=== PATIENT | female | born 1965 | race Hispanic/Latino ===

== ENCOUNTER 2017-11-19 18:10 | Emergency (ER) | payer BC, OTHER ==
[2017-11-19 19:44] LABS: Absolute Lymphocytes (CBC) 3.2 K/uL (0.7-4.9); Absolute Monocytes 0.6 K/uL (0.1-1.3); Absolute Neutrophil 5.2 K/uL (1.8-8.0); Eosinophils % 2.4 % (0-4.4); Hematocrit 39.7 % (36.0-45.0); Lymphocytes % 34.1 % (15.3-44.8); MCH 30.7 pg (27.0-35.0); MCV 89.6 fL (80-100); MPV 10.8 fL (7.6-11.3); Monocytes % 6.8 % (3.3-12.3); RBC Red Blood Cell Count 4.43 M/uL (3.86-4.86)
[2017-11-19 19:51] LABS: Bicarbonate 26 mEq/L (21-31); Glucose Level 326 mg/dL (65-120); Lipase 20 U/L (22-51); Potassium 3.4 mEq/L (3.6-5.0); Sodium Level 133 mEq/L (135-145)
[2017-11-19 19:57] LABS: ALT/SGPT 66 IU/L (10-60); AST/SGOT 50 IU/L (10-42); Albumin 3.7 g/dL (3.2-5.5); Alkaline Phosphatase 157 IU/L (42-121); Amylase Level 16 U/L (28-100); BUN Blood Urea Nitrogen 9 mg/dL (6-20); Bilirubin Direct 0.1 mg/dL (0-0.2); Bilirubin Total 0.3 mg/dL (0.3-1.2); Protein, Total 7.4 g/dL (6.0-8.3)
[2017-11-19] MEDS ORDERED: NA CHLORIDE 0.9% 1,000 ML ONE (20:15)
[2017-11-19] MEDS ORDERED: INSULIN -REGULAR HUMAN 50 UNIT/0.5 ML ML ONE (20:48)
--- NOTE | 2017-11-19 21:00 | ER ---
Nurse's Notes [facility] Name: Monroe Boss Age: 52 yrs Sex: Female : 1965 Arrival Date: 11/19/2017 Time: 18:13 Bed 17 Private MD: Diagnosis: Elevated blood glucose level Presentation: 11/19 18:29 Presenting complaint: Patient states: My BGL has been high at home (440) and I am out la1 of my insulin and HTN meds because I missed my doctors appointment. Transition of care: patient was not received from another setting of care. Onset of symptoms was November 19, 2017. Care prior to arrival: None. 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 - Social history:: Smoking status: Patient uses tobacco products, smokes one-half pack cigarettes per day. - Family history:: not pertinent. Screenin:06 Abuse screen: Denies threats or abuse. Nutritional screening: No deficits noted. tl2 Tuberculosis screening: No symptoms or risk factors identified. Fall Risk None identified. Assessment: 20:06 General: Appears in no apparent distress. uncomfortable, Behavior is calm, cooperative, tl2 appropriate for age. General: pt reports not having her insulin or HTN meds for the last week. reports BGL in 400's. Pain: Denies pain. Neuro: Level of Consciousness is awake, alert, obeys commands. Cardiovascular: Denies chest pain. Respiratory: Airway is patent Respiratory effort is even, unlabored, Respiratory pattern is regular, symmetrical. GI: No signs and/or symptoms were reported involving the gastrointestinal system. : No signs and/or symptoms were reported regarding the genitourinary system. Derm: Skin is pink, warm \T\ dry. 21:37 Reassessment: Patient and/or family updated on plan of care and expected duration. Pain tl1 level reassessed. Patient is alert, oriented x 3, equal unlabored respirations, skin warm/dry/pink. Patient states feeling better. Patient states symptoms have improved. Vital Signs: 18:30 BP 160 / 100; Pulse 84; Resp 16; Temp 97.5; Pulse Ox 100% on R/A; Weight 90.72 kg; la1 Height 4 ft. 11 in. (149.86 cm); 19:27 BP 144 / 97; Pulse 97; Resp 17; Pulse Ox 97% on R/A; Pain 0/10; tl1 20:06 BP 135 / 99; Pulse 90; Resp 18; Pulse Ox 97% on R/A; tl2 20:55 BP 148 / 98; Pulse 96; Resp 17; Pulse Ox 98% ; Pain 0/10; tl1 21:27 BP 132 / 69; Pulse 98; Resp 16; Pulse Ox 98% on R/A; tl2 21:32 Temp 97.6; tl1 21:32 Pain 0/10; tl1 18:30 Body Mass Index 40.39 (90.72 kg, 149.86 cm) la1 Vitals: 20:06 Cardiac Rhythm Assessment Sinus rhythm. tl2 ED Course: 18:13 Patient arrived in ED. mr 18:29 Triage completed. la1 18:30 Arm band placed on left wrist. la1 19:21 Kalyani Lopez MD is Attending Physician. ma2 19:26 Irasema Jansen RN is Primary Nurse. tl1 20:06 Patient has correct armband on for positive identification. Placed in gown. Bed in low tl2 position. Call light in reach. Side rails up X2. 20:06 Inserted saline lock: 20 gauge in left antecubital area, using aseptic technique. Blood tl2 collected. placed by LALO Villalpando. 21:37 No provider procedures requiring assistance completed. IV discontinued, intact, tl1 bleeding controlled, No redness/swelling at site. Pressure dressing applied. Administered Medications: 20:19 Drug: NS 0.9% 1000 ml Route: IV; Rate: 1000 ml; Site: left antecubital; tl1 21:28 Follow up: IV Status: Completed infusion; IV Intake: 1000ml tl2 21:38 Follow up: IV Status: Completed infusion tl1 20:51 Drug: Insulin Regular Human 5 units {Co-Signature: tl2 (Marilyn Virk RN).} Route: IVP; tl1 Site: left antecubital; 21:28 Follow up: Response: No adverse reaction; Blood sugar is lowered tl2 21:38 Follow up: Response: No adverse reaction; Blood sugar is lowered tl1 Point of Care Testing: Blood Glucose: 18:30 Blood Glucose: 346 mg/dL; la1 21:26 Blood Glucose: 143 mg/dL; tl2 Ranges: Intake: 21:28 IV: 1000ml; Total: 1000ml. tl2 Outcome: 20:59 Discharge ordered by . ma2 21:38 Discharged to home ambulatory, with family. tl1 21:38 Condition: good 21:38 Discharge instructions given to patient, family, Instructed on discharge instructions, follow up and referral plans. medication usage, Demonstrated understanding of instructions, follow-up care, medications, Prescriptions given X 4. 21:39 Patient left the ED. tl1 Signatures: Brandi Pearson Lee, RN RN la1 Irasema Jansen RN RN tl1 Marilyn Virk RN RN tl2 Kalyani Lopez MD MD ma2 Marilyn Virk RN tl2 Corrections: (The following items were deleted from the chart) 20:07 20:06 Reassessment: tl2 tl2
--- NOTE | 2017-11-19 21:00 | EDPHYS ---
Physician Documentation [facility] Name: Monroe Boss Age: 52 yrs Sex: Female : 1965 Arrival Date: 11/19/2017 Time: 18:13 Bed 17 Private MD: ED Physician Kalyani Lopez HPI: 11/19 20:26 This 52 yrs old Female presents to ER via Ambulatory with complaints of High ma2 Blood Sugar. 20:26 Onset: The symptoms/episode began/occurred gradually, 1 day(s) ago. Associated signs ma2 and symptoms: Pertinent positives: None. Current symptoms: In the emergency department the patient's symptoms are unchanged from the initial presentation. The patient has experienced similar episodes in the past. hx of IDDM out of her medication here with elevated BS no symptom . 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 - Social history:: Smoking status: Patient uses tobacco products, smokes one-half pack cigarettes per day. - Family history:: not pertinent. ROS: 20:26 All other systems are negative. ma2 21:06 Constitutional: Negative for fever, chills, and weight loss, Abdomen/GI: Negative for ma2 abdominal pain, nausea, diarrhea, and constipation, Back: Negative for injury and pain, : Negative for injury, bleeding, discharge, and swelling, Hematologic/Lymphatic: Negative for swollen nodes, abnormal bleeding, and unusual bruising. Exam: 20:26 Constitutional: This is a well developed, well nourished patient who is awake, alert, ma2 and in no acute distress. Eyes: Pupils equal round and reactive to light, extra-ocular motions intact. Lids and lashes normal. Conjunctiva and sclera are non-icteric and not injected. Cornea within normal limits. Periorbital areas with no swelling, redness, or edema. Chest/axilla: Normal chest wall appearance and motion. Nontender with no deformity. No lesions are appreciated. Cardiovascular: Regular rate and rhythm with a normal S1 and S2. No gallops, murmurs, or rubs. Normal PMI, no JVD. No pulse deficits. Respiratory: Lungs have equal breath sounds bilaterally, clear to auscultation and percussion. No rales, rhonchi or wheezes noted. No increased work of breathing, no retractions or nasal flaring. Abdomen/GI: Soft, non-tender, with normal bowel sounds. No distension or tympany. No guarding or rebound. No evidence of tenderness throughout. Neuro: Awake and alert, GCS 15, oriented to person, place, time, and situation. Cranial nerves II-XII grossly intact. Motor strength 5/5 in all extremities. Sensory grossly intact. Cerebellar exam normal. Normal gait. Vital Signs: 18:30 BP 160 / 100; Pulse 84; Resp 16; Temp 97.5; Pulse Ox 100% on R/A; Weight 90.72 kg; la1 Height 4 ft. 11 in. (149.86 cm); 19:27 BP 144 / 97; Pulse 97; Resp 17; Pulse Ox 97% on R/A; Pain 0/10; tl1 20:06 BP 135 / 99; Pulse 90; Resp 18; Pulse Ox 97% on R/A; tl2 20:55 BP 148 / 98; Pulse 96; Resp 17; Pulse Ox 98% ; Pain 0/10; tl1 21:27 BP 132 / 69; Pulse 98; Resp 16; Pulse Ox 98% on R/A; tl2 21:32 Temp 97.6; tl1 21:32 Pain 0/10; tl1 18:30 Body Mass Index 40.39 (90.72 kg, 149.86 cm) la1 MDM: 19:21 Patient medically screened. ma2 20:26 Differential diagnosis: diabetes insipidus, DKA, gestational diabetes, hyperglycemia. ma2 20:58 Data reviewed: vital signs, nurses notes. Counseling: I had a detailed discussion with ma2 the patient and/or guardian regarding: the historical points, exam findings, and any diagnostic results supporting the discharge/admit diagnosis, the need for outpatient follow up. 11/19 19:26 Order name: Amylase, Serum; Complete Time: 20:41 tl1 11/19 19:26 Order name: Basic Metabolic Panel; Complete Time: 20:41 tl1 11/19 19:26 Order name: CBC with Diff; Complete Time: 20:41 tl1 11/19 19:26 Order name: Creatinine for Radiology; Complete Time: 20:41 tl1 11/19 19:26 Order name: Hepatic Function; Complete Time: 20:41 tl1 11/19 19:26 Order name: Lipase; Complete Time: 20:41 tl1 11/19 19:26 Order name: IV Saline Lock; Complete Time: 19:49 tl1 11/19 19:26 Order name: Labs collected and sent; Complete Time: 19:49 tl1 Administered Medications: 20:19 Drug: NS 0.9% 1000 ml Route: IV; Rate: 1000 ml; Site: left antecubital; tl1 21:28 Follow up: IV Status: Completed infusion; IV Intake: 1000ml tl2 21:38 Follow up: IV Status: Completed infusion tl1 20:51 Drug: Insulin Regular Human 5 units {Co-Signature: tl2 (Marilyn Virk RN).} Route: IVP; tl1 Site: left antecubital; 21:28 Follow up: Response: No adverse reaction; Blood sugar is lowered tl2 21:38 Follow up: Response: No adverse reaction; Blood sugar is lowered tl1 Point of Care Testing: Blood Glucose: 18:30 Blood Glucose: 346 mg/dL; la1 21:26 Blood Glucose: 143 mg/dL; tl2 Ranges: Critical Glucose Levels:Adult <50 mg/dl or >400 mg/dl <40 mg/dl or >180 mg/dl Disposition: 11/19/17 20:59 Discharged to Home. Impression: Elevated blood glucose level. - Condition is Stable. - Prescriptions for Cymbalta 20 mg Oral Capsule, Delayed Release(E.C.) - take 1 capsule by ORAL route every 12 hours; 60 capsule. Metformin 500 mg Oral Tablet - take 1 tablet by ORAL route once daily for 7 days Then take 1 tablet with morning meals AND evening meals; 21 tablet. - Medication Reconciliation Form, Thank You Letter, Antibiotic Education, Prescription Opioid Use form. - Follow up: Private Physician; When: Tomorrow; Reason: Continuance of care. - Problem is new. - Symptoms are resolved. Signatures: Dispatcher [employer] EDMS Attema, Betito, RN RN la1 Irasema Jansen RN RN tl1 Kalyani Lopez MD MD ma2 Marilyn Virk RN tl2 Marilyn Virk RN tl2
[2017-11-19 21:55] VITALS: O2SAT 98
[2017-11-19 21:56] VITALS: BP 132/69
[2017-11-19 21:57] VITALS: TEMP 97.6
== END 2017-11-19 21:39 | disposition home or self-care (01) ==
LOC: ER 18:10
DX: R73.9 Hyperglycemia, unspecified (principal); I10 Essential (primary) hypertension; F32.9 Major depressive disorder, single episode, unspecified
CPT/HCPCS: 36415; 80048; 80076; 82150; 82962; 83690; 85025; 96361; 96374; 99284; J7030

== ENCOUNTER 2018-01-04 15:19 | Observation (INO) | payer BC, OTHER ==
[2018-01-04] MEDS ORDERED: NA CHLORIDE 0.9% 1,000 ML ONE (18:56)
[2018-01-04 19:37] LABS: Potassium 3.7 mEq/L (3.6-5.0)
--- NOTE | 2018-01-04 19:59 | EDPHYS ---
Physician Documentation [facility] Name: Monroe Boss Age: 52 yrs Sex: Female : 1965 Arrival Date: 01/04/2018 Time: 15:22 Bed 26 Private MD: Unknown, Unknown ED Physician Edouard Espinosa HPI: 01/04 19:06 This 52 yrs old Female presents to ER via Ambulatory with complaints of Blood jr8 Sugar Problem, Vomiting. 19:06 Patient stated that she had been out of her diabetic medications for some time. Stated jr8 that she just recently started back on them but that her sugar has been more elevated and has been more nauseated . Severity of symptoms: At their worst the symptoms were mild in the emergency department the symptoms are unchanged. It is unknown whether or not the patient has had similar symptoms in the past. The patient has been recently seen by a physician: the patient's primary care provider. 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 - Social history:: Smoking status: Patient/guardian denies using tobacco. - Ebola Screening: : No symptoms or risks identified at this time. ROS: 19:06 Eyes: Negative for injury, pain, redness, and discharge, ENT: Negative for injury, jr8 pain, and discharge, Neck: Negative for injury, pain, and swelling, Cardiovascular: Negative for chest pain, palpitations, and edema, Respiratory: Negative for shortness of breath, cough, wheezing, and pleuritic chest pain, Back: Negative for injury and pain, MS/Extremity: Negative for injury and deformity, Skin: Negative for injury, rash, and discoloration, Neuro: Negative for headache, weakness, numbness, tingling, and seizure. 19:06 Abdomen/GI: Positive for nausea, vomiting, Negative for abdominal pain, diarrhea, constipation, abdominal cramps, abdominal distension, anorexia, dysphagia, hematemesis, black/tarry stool, rectal pain, rectal bleeding, bowel incontinence, flatulence. Exam: 19:06 Eyes: Pupils equal round and reactive to light, extra-ocular motions intact. Lids and jr8 lashes normal. Conjunctiva and sclera are non-icteric and not injected. Cornea within normal limits. Periorbital areas with no swelling, redness, or edema. ENT: Nares patent. No nasal discharge, no septal abnormalities noted. Tympanic membranes are normal and external auditory canals are clear. Oropharynx with no redness, swelling, or masses, exudates, or evidence of obstruction, uvula midline. Mucous membranes moist. Neck: Trachea midline, no thyromegaly or masses palpated, and no cervical lymphadenopathy. Supple, full range of motion without nuchal rigidity, or vertebral point tenderness. No Meningismus. Cardiovascular: Regular rate and rhythm with a normal S1 and S2. No gallops, murmurs, or rubs. Normal PMI, no JVD. No pulse deficits. Respiratory: Lungs have equal breath sounds bilaterally, clear to auscultation and percussion. No rales, rhonchi or wheezes noted. No increased work of breathing, no retractions or nasal flaring. Abdomen/GI: Soft, non-tender, with normal bowel sounds. No distension or tympany. No guarding or rebound. No evidence of tenderness throughout. Back: No spinal tenderness. No costovertebral tenderness. Full range of motion. Skin: Warm, dry with normal turgor. Normal color with no rashes, no lesions, and no evidence of cellulitis. MS/ Extremity: Pulses equal, no cyanosis. Neurovascular intact. Full, normal range of motion. Neuro: Awake and alert, GCS 15, oriented to person, place, time, and situation. Cranial nerves II-XII grossly intact. Motor strength 5/5 in all extremities. Sensory grossly intact. Cerebellar exam normal. Normal gait. Vital Signs: 15:43 BP 131 / 69; Pulse 94; Resp 16; Temp 98.4; Pulse Ox 97% ; Weight 88.9 kg; Height 4 ft. sv 11 in. (149.86 cm); Pain 0/10; 19:26 BP 116 / 83; Pulse 83; Resp 20; Pulse Ox 96% on R/A; mb3 21:11 BP 142 / 91 LA Sitting (auto/reg); Pulse 89; Resp 16; Pulse Ox 100% on R/A; mb3 15:43 Body Mass Index 39.59 (88.90 kg, 149.86 cm) sv MDM: 18:21 Patient medically screened. jr8 19:51 Data reviewed: vital signs, nurses notes, lab test result(s). Data interpreted: Pulse jr8 oximetry: on room air is 96 %. Interpretation: normal. Counseling: I had a detailed discussion with the patient and/or guardian regarding: the historical points, exam findings, and any diagnostic results supporting the discharge/admit diagnosis, lab results, the need for outpatient follow up, a family practitioner, to return to the emergency department if symptoms worsen or persist or if there are any questions or concerns that arise at home. 19:57 ED course: Talked to Dr. Taylor. Patient had normal renal function 1 month ago. jr8 Recently started back on Metformin. Now has Acute renal failure. Accepted patient for further work up . 01/04 15:45 Order name: Glucose, Ancillary Testing; Complete Time: 18:21 EDMS 01/04 18:49 Order name: CBC with Diff; Complete Time: 20:12 [facility] 01/04 18:49 Order name: Basic Metabolic Panel; Complete Time: 19:51 [facility] 01/04 18:49 Order name: IV; Complete Time: 19:19 [facility] 01/04 20:15 Order name: CONS Physician Consult EDMS Administered Medications: 19:05 Drug: NS 0.9% 1000 ml Route: IV; Rate: 1000 ml; Site: right antecubital; mb3 21:16 Follow up: Response: No adverse reaction; IV Status: Completed infusion; IV Intake: mb3 1000ml Point of Care Testing: Blood Glucose: 15:43 Blood Glucose: 287 mg/dL; sv Ranges: Critical Glucose Levels:Adult <50 mg/dl or >400 mg/dl <40 mg/dl or >180 mg/dl Disposition: 01/05 07:25 Co-signature as Attending Physician, Edouard Espinosa MD I agree with the assessment and hernando plan of care. Disposition: 01/04/18 19:58 Hospitalization ordered by Ivan Estes for Inpatient Admission. Preliminary diagnosis is Acute kidney failure. - Bed requested for Telemetry/MedSurg (Inpatient). - Status is Inpatient Admission. mb3 - Condition is Stable. - Problem is new. - Symptoms are unchanged. UTI on Admission? No Signatures: Dispatcher [employer] EDAbida Padron, RN RN Rita Light RN RN Edouard Sheppard MD MD cha Roszak, Josh, PA PA jr8 Samantha Sloan Mark, RN RN mb3 Corrections: (The following items were deleted from the chart) 01/04 20:10 19:58 Hospitalization Ordered by Ivan Estes MD for Inpatient Admission. Preliminary dw diagnosis is Acute kidney failure. Bed requested for Telemetry/MedSurg (Inpatient). Status is Inpatient Admission. Condition is Stable. Problem is new. Symptoms are unchanged. UTI on Admission? No. jr8 20:12 20:10 01/04/2018 19:58 Hospitalization Ordered by Ivan Estes MD for Inpatient eb Admission. Preliminary diagnosis is Acute kidney failure. Bed requested for Telemetry/MedSurg (Inpatient). Status is Inpatient Admission. Condition is Stable. Problem is new. Symptoms are unchanged. UTI on Admission? No. dw 21:40 20:12 01/04/2018 19:58 Hospitalization Ordered by Ivan Estes MD for Inpatient mb3 Admission. Preliminary diagnosis is Acute kidney failure. Bed requested for Telemetry/MedSurg (Inpatient). Status is Inpatient Admission. Condition is Stable. Problem is new. Symptoms are unchanged. UTI on Admission? No. eb
--- NOTE | 2018-01-04 19:59 | ER ---
Nurse's Notes [facility] Name: Monroe Boss Age: 52 yrs Sex: Female : 1965 Arrival Date: 01/04/2018 Time: 15:22 Bed 26 Private MD: Unknown, Unknown Diagnosis: Acute kidney failure Presentation: 01/04 15:40 Presenting complaint: Patient states: "My BS has been up and down. The clinic called me sv Sat and they said it was 600 something. Today I checked it and it was 438 and it went down to 220." c/o n/v. Transition of care: patient was not received from another setting of care. Onset of symptoms was January 01, 2018. Care prior to arrival: None. 15:40 Method Of Arrival: Ambulatory sv 15:40 Acuity: CHRISTY 3 sv 21:14 Risk Assessment: Do you want to hurt yourself or someone else? Patient reports no mb3 desire to harm self or others. Initial Sepsis Screen: Does the patient meet any 2 criteria? No. Patient's initial sepsis screen is negative. Does the patient have a suspected source of infection? No. Patient's initial sepsis screen is negative. 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 - Social history:: Smoking status: Patient/guardian denies using tobacco. - Ebola Screening: : No symptoms or risks identified at this time. Screenin:14 Abuse screen: Denies threats or abuse. Nutritional screening: No deficits noted. mb3 Tuberculosis screening: No symptoms or risk factors identified. Fall Risk None identified. Assessment: 19:25 General: Appears in no apparent distress. obese, Behavior is calm, cooperative, mb3 appropriate for age. Pain: Denies pain. Neuro: No deficits noted. Level of Consciousness is awake, alert, obeys commands, Oriented to person, place, time, situation, Appropriate for age. Cardiovascular: No deficits noted. Respiratory: No deficits noted. Airway is patent Respiratory effort is even, unlabored, Respiratory pattern is regular, symmetrical. GI: Abdomen is round obese, Bowel sounds present X 4 quads. Reports nausea. : No signs and/or symptoms were reported regarding the genitourinary system. Vital Signs: 15:43 BP 131 / 69; Pulse 94; Resp 16; Temp 98.4; Pulse Ox 97% ; Weight 88.9 kg; Height 4 ft. sv 11 in. (149.86 cm); Pain 0/10; 19:26 BP 116 / 83; Pulse 83; Resp 20; Pulse Ox 96% on R/A; mb3 21:11 BP 142 / 91 LA Sitting (auto/reg); Pulse 89; Resp 16; Pulse Ox 100% on R/A; mb3 15:43 Body Mass Index 39.59 (88.90 kg, 149.86 cm) sv ED Course: 15:22 Patient arrived in ED. mr 15:23 Unknown, Unknown is Private Physician. mr 15:42 Triage completed. sv 15:44 Arm band placed on left wrist. sv 15:44 Patient placed in waiting room, Patient notified of wait time. sv 18:02 Jaswant Johnston, RN is Primary Nurse. mb3 18:21 Viraj Gusman PA is PHCP. jr8 18:21 Edouard Espinosa MD is Attending Physician. jr8 19:05 Inserted saline lock: 22 gauge in right antecubital area, using aseptic technique. mb3 Blood collected. 19:58 Ivan Estes MD is Hospitalizing Provider. jr8 21:14 Patient has correct armband on for positive identification. mb3 21:14 No provider procedures requiring assistance completed. mb3 21:15 Patient admitted, IV remains in place. mb3 Administered Medications: 19:05 Drug: NS 0.9% 1000 ml Route: IV; Rate: 1000 ml; Site: right antecubital; mb3 21:16 Follow up: Response: No adverse reaction; IV Status: Completed infusion; IV Intake: mb3 1000ml Point of Care Testing: Blood Glucose: 15:43 Blood Glucose: 287 mg/dL; sv Ranges: Intake: 21:16 IV: 1000ml; Total: 1000ml. mb3 Outcome: 19:58 Decision to Hospitalize by Provider. jr8 21:15 Admitted to Tele accompanied by tech, via wheelchair, room 401, with chart, Report mb3 called to Aissatou MAY 21:15 Condition: stable 21:15 Instructed on the need for admit. 21:40 Patient left the ED. mb3 Signatures: Abida Monroe, Brandi Waldrop RN mr Viraj Gusman PA PA jr8 Jaswant Johnston, LALO RN mb3
[2018-01-04 20:04] LABS: Absolute Lymphocytes (CBC) 3.8 K/uL (0.7-4.9); Absolute Monocytes 1.1 K/uL (0.1-1.3); Absolute Neutrophil 8.9 K/uL (1.8-8.0); Basophils % 0.5 % (0-1.3); Eosinophils % 1.1 % (0-4.4); Hematocrit 42.3 % (36.0-45.0); MCH 30.3 pg (27.0-35.0); MCV 88.6 fL (80-100); MPV 11.7 fL (7.6-11.3); Monocytes % 7.6 % (3.3-12.3); RBC Red Blood Cell Count 4.77 M/uL (3.86-4.86)
--- NOTE | 2018-01-04 20:54 | P.HP ---
Certification for Inpatient Patient admitted to: Inpatient With expected LOS: >2 Midnights Practitioner: I am a practitioner with admitting privileges, knowledge of patient current condition, hospital course, and medical plan of care. Services: Services provided to patient in accordance with Admission requirements found in Title 42 Section 412.3 of the Code of Federal Regulations Patient History Date of Service: 01/04/18 Reason for admission: intractable nausea/vomiting, dehydration History of Present Illness: Ms Suarez is a 52 years old woman with history of HTN, dyslipidemia, DM II insulin dependent, who start about 2 days ago with nausea and vomiting. She was not able to tolerate food or liquids down. She use to take Metformin, but she was running out of this medication for the last 2 weeks, however, she was still applying her long acting insulin. Her PCP is at [facility] and she had a recent lab work. She was called and told that her BS was above 600mg/dl. She denied any fever or chills. No cough, chest pain, SOB, burning urination. Lab work in ED showed significant electrolyte abnormalities, hyperglycemia, abnormal renal function and leukocytosis. No fever or chills. Allergies No Known Allergies Allergy (Verified 01/14/17 00:53) Home Medications: Atenolol 50 mg PO BEDTIME 01/14/17 Atorvastatin Calcium [Lipitor*] 20 mg PO BEDTIME 01/14/17 Duloxetine HCl 60 mg PO DAILY 01/14/17 Losartan/Hydrochlorothiazide [Losartan-Hctz 100-25 mg Tab] 1 tab PO DAILY Risperidone 3 mg PO BEDTIME 01/14/17 Codeine/APAP [Tylenol W/Codeine #3 tab] 1 tab PO Q6HP PRN #20 tab 01/16/17 Insulin Glargine Human [Lantus*] 32 units SQ DAILY WITH BREAKFAST #10 ml Sulfamethoxazole/Trimethoprim [Bactrim Ds Tablet] 2 each PO BID #56 tablet 01/16 Syring-Needl,Disp,Insul,0.3 ml [Insulin Syringe] 1 each MC DAILY #100 disp.syrin 01/16/17 - Past Medical/Surgical History Diabetic: No -: Depression -: HTN -: Hyperlipidemia -: DM II -: csection - Family History Father -: Heart disease, Hypertension, Lung disease Mother -: Heart disease, Hypertension, Diabetes, Cancer Notes: stomach ca - Social History Smoking Status: Former smoker Alcohol use: No CD- Drugs: No Caffeine use: No Place of Residence: Home Review of Systems 10-point ROS is otherwise unremarkable Physical Examination - Physical Exam General: Alert, In no apparent distress HEENT: Atraumatic, PERRLA, Mucous membr. moist/pink, EOMI, Sclerae nonicteric Neck: Supple, 2+ carotid pulse no bruit, No LAD, Without JVD or thyroid abnormality Respiratory: Clear to auscultation bilaterally, Normal air movement Cardiovascular: Regular rate/rhythm, Normal S1 S2 Gastrointestinal: Normal bowel sounds, No tenderness Musculoskeletal: No tenderness Integumentary: No rashes Neurological: Normal speech, Normal strength at 5/5 x4 extr, Normal tone, Normal affect Lymphatics: No axilla or inguinal lymphadenopathy - Studies Laboratory Data (last 24 hrs) 01/04/18 19:07: Sodium 130 L, Potassium 3.7, BUN 50 H, Creatinine 2.07 H, Glucose 271 H 01/04/18 19:07: WBC 13.9 H, Hgb 14.5, Hct 42.3, Plt Count 258 Assessment and Plan - Problems (Diagnosis) (1) Acute renal injury Current Visit: Yes Status: Acute (2) Diabetes mellitus Current Visit: No Status: Acute Qualifiers: Diabetes mellitus type: type 2 Diabetes mellitus end stapler insulin use: without jail use Diabetes mellitus complication status: with unspecified complications Qualified Code(s): E11.8 - Type 2 diabetes mellitus with unspecified complications (3) Dyslipidemia Current Visit: No Status: Acute (4) Hyperglycemia Onset Date: 01/14/17 Current Visit: No Status: Acute (5) Hypertension Current Visit: No Status: Acute Qualifiers: Hypertension type: essential hypertension Qualified Code(s): I10 - Essential (primary) hypertension (6) Dehydration Current Visit: Yes Status: Acute (7) Hyponatremia Current Visit: Yes Status: Acute - Plan Ms Suarez will be admitted to the hospital due to intractable nausea and vomiting, acute renal injury, secondary to uncontrolled diabetes mellitus. Her current BS is 271 mg/dl. Will check HgbA1c, resume lantus insulin, order SSI, symptomatic medication for nausea and vomiting, IV fluids, Neprhology consulted. - Advance Directives Does patient have a Living Will: No Does patient have a Durable POA for Healthcare: No - Code Status/Comfort Care Code Status Assessed: Yes Code Status: Full Code
[2018-01-04] MEDS ORDERED: ONDANSETRON 4 MG/2 ML VIAL IV PRN (21:48)
[2018-01-04] MEDS ORDERED: ACETAMINOPHEN 500 MG TAB PO PRN (21:48)
[2018-01-04] MEDS: NA CHLORIDE 0.9% 1,000 ML IV SCH (21:48)
[2018-01-04] MEDS: ATORVASTATIN 20 MG TAB PO SCH (22:16)
[2018-01-04] MEDS: INSULIN -REGULAR HUMAN 50 UNIT/0.5 ML ML SQ SCH (22:16)
[2018-01-05] MEDS: NA CHLORIDE 0.9% 1,000 ML IV SCH ×3 (03:05→20:54)
[2018-01-05 03:49] LABS: UR CREAT 128.6 mg/dL; Urine Protein/Creatinine Ratio 0.24 (<0.15)
[2018-01-05 03:58] LABS: Urine Appearance CLOUDY; Urine Bilirubin NEGATIVE (NEG); Urine Blood 1+ (NEG); Urine Color YELLOW; Urine Glucose NEGATIVE (NEG); Urine Protein TRACE (NEG); Urine Specific Gravity 1.015 (1.005-1.030); Urine Urobilinogen 0.2 mg/dL (0.2-1.0)
[2018-01-05 04:17] VITALS: BMI 39.6
[2018-01-05 04:41] LABS: Urine Microscopic Reflex ORDER UMIC
[2018-01-05 04:55] LABS: Absolute Lymphocytes (CBC) 3.6 K/uL (0.7-4.9); Absolute Monocytes 1.1 K/uL (0.1-1.3); Absolute Neutrophil 6.5 K/uL (1.8-8.0); Basophils % 0.5 % (0-1.3); Eosinophils % 1.9 % (0-4.4); MCH 29.5 pg (27.0-35.0); MCV 88.9 fL (80-100); MPV 11.6 fL (7.6-11.3); Monocytes % 9.9 % (3.3-12.3); RBC Red Blood Cell Count 4.39 M/uL (3.86-4.86)
[2018-01-05 05:36] LABS: Urine Bacteria LOADED /HPF (<20); Urine Culture Reflex Order REFLEXED; Urine RBC <5 /HPF (NONE SEEN)
[2018-01-05 05:43] LABS: Albumin 3.6 g/dL (3.2-5.5); Phosphorus 4.5 mg/dL (2.5-4.3); Thyroid Stimulating Hormone 1.17 uIU/mL (0.34-5.60)
[2018-01-05] MEDS ORDERED: POTASSIUM CL SA 10 MEQ TAB PO ONE ×2 (05:49→15:00)
[2018-01-05] MEDS: INSULIN DETEMIR 100 UNIT/1 ML INSULIN SQ SCH (08:03)
[2018-01-05] MEDS: ENOXAPARIN 30 MG/0.3 ML SQ SCH (08:04)
[2018-01-05] MEDS: INSULIN -REGULAR HUMAN 50 UNIT/0.5 ML ML SQ SCH ×4 (08:04→20:55)
[2018-01-05] MEDS: CEFTRIAXONE/SWI 1gm 1 GM/10 ML SYR IV SCH (08:05)
[2018-01-05 08:23] LABS: A1c Component 1.49 mg/dL; Hemoglobin A1c 12.2 % (4-6.0)
[2018-01-05] MEDS ORDERED: CEFTRIAXONE 1 GM/NS 50 ML 1 GM/50 ML BAG IV SCH (09:00)
--- NOTE | 2018-01-05 09:22 | RAD REPORT ---
EXAM DESCRIPTION: US - Renal Ultrasound-Complete - 01/05/2018 8:25 am CLINICAL HISTORY: Acute kidney injury COMPARISON: CT study March 2012 FINDINGS: The right kidney measures 12.0 x 5.8 x 6.5 cm. The left kidney measures 12.6 x 6.3 x 6.1 cm. Renal cortical thickness and echogenicity are normal. No hydronephrosis or suspicious renal mass. A large gallstone is present in a partially imaged gallbladder. There is fatty infiltration pattern i n a partially imaged liver. IMPRESSION: No hydronephrosis or suspicious renal mass. Fatty liver disease and cholelithiasis are identifiable. Liver and gallbladder are not fully assessed on renal sonography.
--- NOTE | 2018-01-05 10:06 | P.PN ---
Subjective Date of Service: 01/05/18 Primary Care Provider: [facility] Chief Complaint: intractable nausea/vomiting, dehydration Subjective: Other (Patient feeling better.) Physical Examination - Vital Signs Temperature: 97.0 F Blood Pressure: 139/84 Pulse: 96 Respirations: 18 Pulse Ox (%): 95 - Physical Exam General: Alert, In no apparent distress, Oriented x3, Cooperative HEENT: Atraumatic Neck: Supple Respiratory: Clear to auscultation bilaterally, Normal air movement Cardiovascular: Normal pulses, Regular rate/rhythm Gastrointestinal: Normal bowel sounds, Soft and benign, Non-distended, No tenderness, No masses, No rebound, No guarding Musculoskeletal: No erythema, No tenderness, No warmth Integumentary: No tenderness/swelling, No erythema, No warmth, No cyanosis Neurological: Normal speech, Normal strength at 5/5 x4 extr, Normal tone, Normal affect - Studies Laboratory Data (last 24 hrs) 01/04/18 19:07: Sodium 130 L, Potassium 3.7, BUN 50 H, Creatinine 2.07 H, Glucose 271 H 01/04/18 19:07: WBC 13.9 H, Hgb 14.5, Hct 42.3, Plt Count 258 Medications List Reviewed: Yes Assessment & Plan - Problems (Diagnosis) (1) UTI (urinary tract infection) Current Visit: Yes Status: Acute Plan: Urine culture obtained. Rocephin started. Await urine culture results. Qualifiers: Urinary tract infection type: site unspecified Hematuria presence: without hematuria Qualified Code(s): N39.0 - Urinary tract infection, site not specified (2) Acute renal injury Onset Date: 01/05/18 Current Visit: Yes Status: Acute Plan: Acute renal injury likely from medication. Patient taking metformin, ANGELICA- inhibitor with diuretic at home. Patient with UTI. Combination of dehydration as well. Will continue with IV fluids and treatment of UTI. Will hold metformin and ANGELICA-inhibitor/hydrochlorothiazide. Nephrology consulted. Await further recommendations. (3) Diabetes mellitus Onset Date: 01/05/18 Current Visit: Yes Status: Chronic Plan: Will continue with basal insulin. Will hold metformin due to acute renal insufficiency. Patient needs better diabetic control. Qualifiers: Diabetes mellitus type: type 2 Diabetes mellitus parts counterman insulin use: with parts counterman use Diabetes mellitus complication status: with other specified complication Qualified Code(s): E11.69 - Type 2 diabetes mellitus with other specified complication; Z79.4 - joint terminal attack controller (current) use of insulin (4) Dyslipidemia Onset Date: 01/05/18 Current Visit: Yes Status: Chronic Plan: Will continue with her medication (5) Hypertension Onset Date: 01/05/18 Current Visit: Yes Status: Chronic Plan: Will continue with metoprolol. Will hold Norvasc and lisinopril/ hydrochlorothiazide due to acute renal injury Qualifiers: Hypertension type: essential hypertension Qualified Code(s): I10 - Essential (primary) hypertension (6) Dehydration Onset Date: 01/05/18 Current Visit: Yes Status: Acute Plan: Will continue with plan above. Continue IV fluids. (7) Hyponatremia Onset Date: 01/05/18 Current Visit: Yes Status: Acute Plan: Continue with IV fluids. Continue with above plan of care Discharge Plan: Home Plan to discharge in: 24 Hours (to 48 hours) Time Spent Managing Pts Care (In Minutes): 55
[2018-01-05] MEDS: DULOXETINE 30 MG CAP PO SCH (12:00)
[2018-01-05] MEDS ORDERED: DOCUSATE NA 100 MG CAP PO PRN (12:50)
[2018-01-05] MEDS: METOPROLOL TAR 25 MG TAB PO SCH (17:08)
[2018-01-05] MEDS: ATORVASTATIN 20 MG TAB PO SCH (20:53)
--- NOTE | 2018-01-05 20:58 | CON ---
Date of Consultation: 01/05/2018 Additional Consulting Physician: Dr. Lizama. Reason For Consultation: Anasarca, elevated BUN and creatinine. History Of Present Illness: This is a pleasant, 52-year-old female with significant past medical his tory of diabetes complicated with neuropathy, no nephropathy, no retinopathy, hypertension, hyperlipi demia. The patient was in her regular state of health until she started having the last couple of da ys nausea and vomiting. Not able to tolerate any fluid. For that reason, came to the hospital. The patient being on metformin. The patient apparently was placed on insulin, but she started to have t o use only long acting because she cannot afford it. When arrived to the hospital, her blood sugar w as elevated above 600. Creatinine was up to 2. For that reason, we have been consulted. The patien t admits that she has been taking ibuprofen 1 tablet every other day for the last few months. Also r eviewing the record, the patient's kidney function was normal back in November 2017, creatinine 0.6 with normal GFR above 90. On admission, creatinine was 2.07, GFR was down to 25. After hydration creati nine down to 1.7. GFR 30. The patient denied taking any new antibiotic. No other change in her medication. Allergies: NO KNOWN DRUG ALLERGIES. Home Medications: Include, 1.Atenolol. 2.Atorvastatin. 3.Losartan. 4.Hydrochlorothiazide. 5.Codeine. 6.Insulin. 7.Bactrim. Past Medical History: Include, 1.Diabetes. 2.Depression. 3.Hyperlipidemia. 4.Hypertension. Past Surgical History: Include . Family History: Positive for heart disease and lung disease. Social History: Ex-smoker, denied alcohol, denied drug abuse. Review of Systems: Head and Neck: No red eye. No ear pain. GI: Has nausea and vomiting. : No polyuria. No dysuria. No hematuria. FISCAL TECHNICIAN: No vaginal discharge. Respiratory: No shortness of breath. Cardiovascular: No chest pain. No edema. Musculoskeletal: Generalized fatigue. Endocrine: No polydipsia. Skin: No rash. Neuro: Has neuropathy. Physical Examination: General: When I saw the patient, the patient lying in bed, comfortable, not in any distress. Vital Signs: Blood pressure 131/81, pulse of 92, afebrile. Chest: Clear to auscultation. Heart: S1, S2. Regular. Abdomen: Soft, nontender. Extremity: Trace edema. Neuro: Alert and oriented x3. Nonfocal. Vascular: No carotid bruit. No renal bruit. The patient is obese. Laboratory Data: WBC 11.5, H and H 13/39, platelet of 214. On admission H and H 14.5/42.3. Back in November H and H 13.6/39.7. Sodium 134, potassium 3, bicarb 20, BUN 47, creatinine 1.7. GFR of 30. C alcium 9.1. On admission, creatinine 2. GFR of 25. Phosphorous 4.5, TSH 1.1. Urinalysis, wbc more than 50, specific gravity of 1.020. Protein creatinine 0.24. Renal ultrasound showing normal-sized kidney, 12 x 12.6. No hydronephrosis. Fatty liver. Assessment And Plan: Acute kidney injury secondary to prerenal, normal-sized kidney, proteinuric, no nnephrotic, mostly on chronic kidney disease, stage 2, secondary to diabetes nephropathy, hypertensio n, nephrosclerosis, acute kidney injury secondary to prerenal, superimposed with ARB/hydrochlorothiaz nisha, Bactrim, and nonsteroidal use. 1.I agree with holding the diuresis, holding the losartan, and with hydration. We will monitor the patient. 2.Marginal hyponatremia, secondary to depletional. Continue hydration. 3.Urinary tract infection. Continue ceftriaxone. We will follow up culture. 4.Gastroenteritis. Continue current antibiotic. 5.Hypertension in the presence of acute kidney injury. Hold hydrochlorothiazide, hold losartan, and we will follow up. Case discussed with Dr. Lizama. Discussed with the patient, verbalized understanding. BRAYAN/EVARISTO Voice ID: [id number] Report ID: [id number]
[2018-01-05] MEDS ORDERED: ZOLPIDEM TARTRATE 5 MG TABLET PO PRN (21:51)
[2018-01-06 04:14] LABS: Absolute Lymphocytes (CBC) 3.1 K/uL (0.7-4.9); Absolute Neutrophil 6.8 K/uL (1.8-8.0); Eosinophils % 1.9 % (0-4.4); Hematocrit 39.1 % (36.0-45.0); Lymphocytes % 27.8 % (15.3-44.8); MCH 30.1 pg (27.0-35.0); MCV 88.8 fL (80-100); MPV 11.3 fL (7.6-11.3); Monocytes % 8.9 % (3.3-12.3)
[2018-01-06] MEDS: NA CHLORIDE 0.9% 1,000 ML IV SCH (04:16)
[2018-01-06] MEDS: METOPROLOL TAR 25 MG TAB PO SCH (04:16)
[2018-01-06 04:26] LABS: Albumin 3.7 g/dL (3.2-5.5); Magnesium 1.8 mg/dL (1.8-2.5); Phosphorus 3.1 mg/dL (2.5-4.3); Potassium 3.7 mEq/L (3.6-5.0)
[2018-01-06] MEDS: INSULIN -REGULAR HUMAN 50 UNIT/0.5 ML ML SQ SCH ×2 (07:30→11:30)
[2018-01-06] MEDS ORDERED: MAGNESIUM SULFATE 1 gm IVPB 1 GM/100 ML BAG IV ONE (08:00)
[2018-01-06] MEDS ORDERED: POTASSIUM 25 MEQ EFFERV TAB PO ONE (08:00)
[2018-01-06] MEDS: ENOXAPARIN 30 MG/0.3 ML SQ SCH (09:37)
[2018-01-06] MEDS: INSULIN DETEMIR 100 UNIT/1 ML INSULIN SQ SCH (09:37)
[2018-01-06] MEDS: DULOXETINE 30 MG CAP PO SCH (09:37)
[2018-01-06] MEDS: CEFTRIAXONE/SWI 1gm 1 GM/10 ML SYR IV SCH (09:37)
[2018-01-06 12:34] VITALS: BP 175/92; TEMP 97.2
[2018-01-06 13:18] VITALS: O2SAT 95
--- NOTE | 2018-01-06 16:48 | P.DS ---
Admission Date: 01/04/18 Discharge Date: 01/06/18 Primary Care Provider: [facility] Disposition: ROUTINE DISCHARGE Discharge Condition: GOOD Reason for Admission: intractable nausea/vomiting, dehydration Consultations: Nephrology Procedures: None - Problems (1) Acute renal injury Onset Date: 01/05/18 Status: Resolved (2) Dehydration Onset Date: 01/05/18 Status: Resolved (3) Hyperglycemia Onset Date: 01/14/17 Status: Resolved (4) Hyperosmolar syndrome Status: Resolved (5) Hyponatremia Onset Date: 01/05/18 Status: Resolved (6) Tobacco abuse Status: Chronic (7) UTI (urinary tract infection) Status: Acute Qualifiers: Urinary tract infection type: site unspecified Hematuria presence: without hematuria Qualified Code(s): N39.0 - Urinary tract infection, site not specified (8) Diabetes mellitus Onset Date: 01/05/18 Status: Chronic Qualifiers: Diabetes mellitus type: type 2 Diabetes mellitus longterm insulin use: with longterm use Diabetes mellitus complication status: with other specified complication Qualified Code(s): E11.69 - Type 2 diabetes mellitus with other specified complication; Z79.4 - terminal operator (current) use of insulin (9) Dyslipidemia Onset Date: 01/05/18 Status: Chronic (10) Hypertension Onset Date: 01/05/18 Status: Chronic Qualifiers: Hypertension type: essential hypertension Qualified Code(s): I10 - Essential (primary) hypertension Brief History of Present Illness: Ms Suarez is a 52 years old woman with history of HTN, dyslipidemia, DM II insulin dependent, who start about 2 days ago with nausea and vomiting. She was not able to tolerate food or liquids down. She use to take Metformin, but she was running out of this medication for the last 2 weeks, however, she was still applying her long acting insulin. Her PCP is at [facility], and she had a recent lab work. She was called and told that her BS was above 600mg/dl. She denied any fever or chills. No cough, chest pain, SOB, burning urination. Lab work in ED showed significant electrolyte abnormalities, hyperglycemia, abnormal renal function and leukocytosis. No fever or chills. Hospital Course: Overall during the hospital stay patient remained stable Patient was initially admitted to the hospital for hyperglycemia dehydration acute renal injury. Patient was also found to have urinary tract infection while here in the hospital. Patient was started on IV fluids here in the hospital along with IV antibiotics. Patient's kidney function improved markedly here in the hospital and patient was a monitor closely for his blood sugar here in the hospital as well. Patient was asked to stop taking his losartan and hydrochlorothiazide along with metformin which was most likely the reason for his acute renal injury. Patient also had a urinary tract infection here and was growing 3 + Gram negative rods and thus was discharged home on p.o. Levaquin for total of 7 days. Patient's sugars remained stable here in the hospital after initial admission. Patient was asked to stop taking his metformin and follow up with his primary care provider to change his insulin dosage to meet his sugar needs adequately. Patient demonstrated understanding and thus was discharged home under stable condition Vital Signs/Physical Exam: Temp Pulse Resp BP Pulse Ox 97.2 F 92 H 16 175/92 H 95 01/06/18 12:00 01/06/18 12:00 01/06/18 12:00 01/06/18 12:00 01/06/18 12:00 General: Alert, In no apparent distress, Oriented x3 HEENT: Atraumatic, PERRLA, EOMI Neck: Supple, JVD not distended Respiratory: Clear to auscultation bilaterally, Normal air movement Cardiovascular: Regular rate/rhythm, Normal S1 S2 Gastrointestinal: Normal bowel sounds, No tenderness Musculoskeletal: No tenderness Integumentary: No rashes Neurological: Normal speech, Normal tone, Normal affect Lymphatics: No axilla or inguinal lymphadenopathy Laboratory Data at Discharge: WBC 11.2 K/uL (4.3-10.9) H 01/06/18 03:42 Hgb 13.3 g/dL (12.0-15.0) 01/06/18 03:42 Hct 39.1 % (36.0-45.0) 01/06/18 03:42 Plt Count 210 K/uL (152-406) 01/06/18 03:42 Sodium 134 mEq/L (135-145) L 01/06/18 03:42 Potassium 3.7 mEq/L (3.6-5.0) 01/06/18 03:42 BUN 28 mg/dL (6-20) H 01/06/18 03:42 Creatinine 1.18 mg/dL (0.44-1.00) H 01/06/18 03:42 Glucose 224 mg/dL (65-120) H 01/06/18 03:42 Phosphorus 3.1 mg/dL (2.5-4.3) 01/06/18 03:42 Magnesium 1.8 mg/dL (1.8-2.5) 01/06/18 03:42 Home Medications: Atorvastatin Calcium [Lipitor*] 20 mg PO BEDTIME 01/14/17 Duloxetine HCl 60 mg PO DAILY 01/14/17 Insulin Glargine Human [Lantus*] 32 units SQ DAILY WITH BREAKFAST #10 ml Amlodipine Besylate 5 mg PO DAILY 01/04/18 Glipizide [Glucotrol*] 5 mg PO BID 01/04/18 Insulin Glargine,Hum.rec.anlog [Lantus] 10 units SQ BEDTIME 01/04/18 Metoprolol Tartrate 25 mg PO BID 01/04/18 Levofloxacin [Levaquin] 500 mg PO DAILY #7 tab 01/06/18 New Medications: Levofloxacin [Levaquin] 500 mg PO DAILY #7 tab Patient Discharge Instructions: Please f/u with nephrology in 1 to 2 week post discharge. You are to stop taking: losartan/HCTZ at home at this time. Metformin. You will need to F/u with PCP and Nephrology regarding your BP and Diabetes control. Resume all other medication as prescribed by PCP Diet: ADA Activity: Ad emile Followup: Madeline Carpio MD [ACTIVE - CAN ADMIT] - 1-2 Weeks (Call to schedule an appointment)
== END 2018-01-06 12:36 | disposition home or self-care (01) ==
LOC: ER 15:19 → INTOOBSV 20:13 → ERHOLD 20:13 → 4TH 21:13
PROVIDERS: ADMIT Internal Medicine; ATTEND Internal Medicine
DX: E11.65 Type 2 diabetes mellitus with hyperglycemia (principal); I10 Essential (primary) hypertension; E78.5 Hyperlipidemia, unspecified; N17.9 Acute kidney failure, unspecified; E11.00 Type 2 diabetes mellitus with hyperosmolarity without nonketotic hyperglycemic-hyperosmolar coma (NKHHC); N39.0 Urinary tract infection, site not specified; E87.1 Hypo-osmolality and hyponatremia; E86.0 Dehydration; K52.9 Noninfective gastroenteritis and colitis, unspecified; Z79.4 Long term (current) use of insulin
CPT/HCPCS: 36415; 76770; 80048; 80069; 81003; 81015; 82570; 82962; 83036; 83735; 84132; 84156; 84443; 85025; 87040; 87077; 87086; 87088; 87186; 87205; 96360; 96361; 99285; G0378; J0696; J1650; J3475; J7030

== ENCOUNTER 2018-05-30 18:42 | Emergency (ER) | payer BC, OTHER ==
[2018-05-30] MEDS ORDERED: HYDRALAZINE HCL 20 MG/ML VIAL ONE (19:57)
[2018-05-30] MEDS ORDERED: ASPIRIN 325 MG TAB ONE (19:57)
[2018-05-30 20:09] LABS: Absolute Lymphocytes (CBC) 2.2 K/uL (0.7-4.9); Absolute Monocytes 0.6 K/uL (0.1-1.3); Absolute Neutrophil 4.7 K/uL (1.8-8.0); Basophils % 0.5 % (0-1.3); Eosinophils % 1.8 % (0-4.4); Hematocrit 39.2 % (36.0-45.0); Lymphocytes % 29.1 % (15.3-44.8); MCV 90.8 fL (80-100); MPV 10.3 fL (7.6-11.3); Monocytes % 7.5 % (3.3-12.3); RBC Red Blood Cell Count 4.31 M/uL (3.86-4.86)
[2018-05-30 20:21] LABS: Protime INR 0.92
[2018-05-30 20:27] LABS: ALT/SGPT 62 U/L (12-78); AST/SGOT 46 U/L (15-37); Albumin 3.3 g/dL (3.4-5.0); Alkaline Phosphatase 160 U/L (45-117); BUN Blood Urea Nitrogen 7 mg/dL (7-18); Bicarbonate 28 mmol/L (21-32); Bilirubin Direct < 0.1 mg/dL (0-0.2); Bilirubin Total 0.3 mg/dL (0.2-1.0); CKMB Creatine Kinase MB 1.1 ng/mL (0.3-3.6); Creatine Phosphokinase 105 U/L (26-192); Glucose Level 195 mg/dL (74-106); Lipase 123 U/L (73-393); Magnesium 1.7 mg/dL (1.8-2.4); NT PRO-BNP 347 pg/mL (<125); Protein, Total 7.5 g/dL (6.4-8.2); Sodium Level 138 mmol/L (136-145); Troponin (Emerg Dept Use Only) < 0.02 ng/mL (0.0-0.045)
--- NOTE | 2018-05-30 20:41 | RAD REPORT ---
EXAM DESCRIPTION: [facility]anch[facility] Single View05/30/2018 8:02 pm CLINICAL HISTORY: sob COMPARISON: January 2017 FINDINGS: The lungs appear clear of acute infiltrate. The heart is normal size IMPRESSION: No acute abnormalities displayed
--- NOTE | 2018-05-30 21:37 | RAD REPORT ---
EXAM DESCRIPTION: CT - Chest For Pe Angio - 05/30/2018 9:20 pm CLINICAL HISTORY: Shortness of breath for 3 weeks COMPARISON: None. TECHNIQUE: Dynamically enhanced axial 3 mm thick images of the chest were obtained during administra tion of <100> mL Isovue 370 IV contrast. Coronal and oblique reconstruction images were generated and reviewed. Exam utilizes a protocol for optimal evaluation of pulmonary arterial tree. Maximum intensity projections 3D imaging was utilized All CT scans are performed using dose optimization technique as appropriate and may include automated exposure control or mA/KV adjustment according to patient size. FINDINGS: A pulmonary embolus is not seen. A thoracic aortic aneurysm is not noted. Minimal bilateral pleural effusions are seen. A pericardial effusion is not seen. A lung consolidation is not present. Fatty infiltration liver IMPRESSION: Negative for a pulmonary embolism. Minimal bilateral pleural effusions
[2018-05-30] MEDS ORDERED: ALBUTEROL 2.5 MG/3 ML NEB SOL ONE (22:28)
[2018-05-30] MEDS ORDERED: LABETALOL 20 MG/4ML SYRINGE IV ONE (22:29)
[2018-05-31] MEDS ORDERED: HYDRALAZINE HCL 20 MG/ML VIAL ONE (00:40)
[2018-05-31] MEDS ORDERED: cloNIDine HCl 0.1 MG TAB ONE (00:40)
--- NOTE | 2018-05-31 01:06 | ER ---
Nurse's Notes [facility] Name: Monroe Boss Age: 52 yrs Sex: Female : 1965 Arrival Date: 05/30/2018 Time: 18:47 Bed 15 Private MD: Diagnosis: Hypertensive urgency;Dyspnea, unspecified Presentation: 05/30 18:52 Presenting complaint: Patient states: "over the last week I've had about 3 episodes aa5 where I am having trouble breathing". Pt denies cough, denies pain. Transition of care: patient was not received from another setting of care. Onset of symptoms was May 2018. Risk Assessment: Do you want to hurt yourself or someone else? Patient reports no desire to harm self or others. Initial Sepsis Screen: Does the patient meet any 2 criteria? No. Patient's initial sepsis screen is negative. Does the patient have a suspected source of infection? No. Patient's initial sepsis screen is negative. Care prior to arrival: None. 18:52 Method Of Arrival: Ambulatory aa5 18:52 Acuity: CHRISTY 2 aa5 Triage Assessment: 19:15 General: Appears in no apparent distress. comfortable, Behavior is calm, cooperative, cc3 appropriate for age. Respiratory: Onset: The symptoms/episode began/occurred since 1 week, the patient has moderate shortness of breath. 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 - Social history:: Smoking status: Patient/guardian denies using tobacco. - Ebola Screening: : No symptoms or risks identified at this time. Screenin:15 Abuse screen: Denies threats or abuse. Denies injuries from another. Nutritional cc3 screening: No deficits noted. Tuberculosis screening: No symptoms or risk factors identified. Fall Risk Ambulatory Aid- None/Bed Rest/Nurse Assist (0 pts). Gait- Normal/Bed Rest/Wheelchair (0 pts) Mental Status- Oriented to own ability (0 pts). Assessment: 19:15 General: Appears in no apparent distress. comfortable, Behavior is calm, cooperative, cc3 appropriate for age. Pain: Denies pain. Neuro: Level of Consciousness is awake, alert, obeys commands, Oriented to person, place, time, situation, Appropriate for age. Cardiovascular: Denies chest pain. Respiratory: Reports shortness of breath on exertion since few days Airway is patent Respiratory effort is even, unlabored, Respiratory pattern is regular, symmetrical. GI: Abdomen is round obese. : No signs and/or symptoms were reported regarding the genitourinary system. EENT: No signs and/or symptoms were reported regarding the EENT system. Derm: No signs and/or symptoms reported regarding the dermatologic system. Musculoskeletal: Circulation, motion, and sensation intact. Range of motion: intact in all extremities. 19:15 Cardiovascular: Rhythm is regular. Respiratory: Breath sounds are clear bilaterally. cc3 20:30 Reassessment: Patient appears in no apparent distress at this time. Patient and/or cc3 family updated on plan of care and expected duration. Pain level reassessed. Patient is alert, oriented x 3, equal unlabored respirations, skin warm/dry/pink. 21:05 Reassessment: Patient appears in no apparent distress at this time. Patient and/or cc3 family updated on plan of care and expected duration. Pain level reassessed. Patient is alert, oriented x 3, equal unlabored respirations, skin warm/dry/pink. 22:20 Reassessment: Patient appears in no apparent distress at this time. Patient and/or cc3 family updated on plan of care and expected duration. Pain level reassessed. Patient is alert, oriented x 3, equal unlabored respirations, skin warm/dry/pink. 23:28 Reassessment: Patient appears in no apparent distress at this time. Patient and/or cc3 family updated on plan of care and expected duration. Pain level reassessed. Patient is alert, oriented x 3, equal unlabored respirations, skin warm/dry/pink. 05/31 00:21 Reassessment: Patient appears in no apparent distress at this time. Patient and/or cc3 family updated on plan of care and expected duration. Pain level reassessed. Patient is alert, oriented x 3, equal unlabored respirations, skin warm/dry/pink. Manual blood pressure reading of 200/120 mmHg, informed Dr. Goodson and new orders were made and carried out. 01:15 Reassessment: Patient appears in no apparent distress at this time. Patient and/or cc3 family updated on plan of care and expected duration. Pain level reassessed. Patient is alert, oriented x 3, equal unlabored respirations, skin warm/dry/pink. BP of 163/87 mmHg, Dr. Goodson discharged home the patient with prescription given. IV cannula removed and patient left ER vitally stable and ambulatory. Vital Signs: 05/30 18:54 BP 204 / 106; Pulse 78; Resp 18 S; Temp 98.5(TE); Pulse Ox 95% on R/A; Weight 97.52 kg aa5 (R); Height 4 ft. 11 in. (149.86 cm) (R); Pain 0/10; 19:45 BP 180 / 102; Pulse 78; Resp 21 S; Pulse Ox 95% on R/A; cc3 21:05 BP 175 / 97; Pulse 83; Resp 20 S; Pulse Ox 96% on R/A; cc3 22:00 BP 199 / 100 RA Sitting (man/reg); Pulse 83; Resp 20; Pulse Ox 93% ; cc 23:00 BP 176 / 89; Pulse 95; Resp 20; Pulse Ox 96% on R/A; cc3 05/31 00:13 BP 189 / 105 RA; Pulse 102; Resp 20 S; Pulse Ox 100% on R/A; cc3 00:21 BP 200 / 120 RA (man/); Pulse 96; Resp 20 S; Pulse Ox 97% on R/A; cc3 01:00 BP 163 / 87; Pulse 107; Resp 19 S; Pulse Ox 96% on R/A; cc3 05/30 18:54 Body Mass Index 43.42 (97.52 kg, 149.86 cm) aa5 ED Course: 05/30 18:47 Patient arrived in ED. mr 18:53 Triage completed. aa5 18:53 Arm band placed on. aa5 19:14 Jerry Goodson MD is Attending Physician. tw4 19:15 Initial lab(s) drawn, by me, held in ED. Inserted saline lock: 20 gauge in left mh5 antecubital area, using aseptic technique. Blood collected. 19:16 Patient has correct armband on for positive identification. Placed in gown. Bed in low mh5 position. Call light in reach. Side rails up X 1. Warm blanket given. surveillance system monitor on. Pulse ox on. NIBP on. 19:40 EKG done, by ED staff, reviewed by Jerry Goodson MD. cc 19:47 Diane Jacobs is Primary Nurse. cc3 20:02 XRAY CXR (1 view) In Process Unspecified. EDMS 21:20 CT Chest For PE Angio In Process Unspecified. EDMS 05/31 01:15 No provider procedures requiring assistance completed. IV discontinued, intact, cc3 bleeding controlled, No redness/swelling at site. Pressure dressing applied. Administered Medications: 05/30 19:45 Drug: Aspirin 325 mg Route: PO; cc3 20:30 Follow up: Response: No adverse reaction cc3 19:46 Drug: hydrALAZINE 10 mg Route: IV; Rate: bolus; Site: left antecubital; cc3 21:00 Follow up: Response: No adverse reaction; Blood pressure is lowered; IV Status: cc3 Completed infusion 22:25 Drug: Albuterol 1.25 mg Route: Inhalation; cc3 23:00 Follow up: Response: No adverse reaction cc3 22:26 Drug: Labetalol 20 mg Route: IVP; Infused Over: 2 mins; Site: left antecubital; cc3 23:00 Follow up: Response: No adverse reaction; Blood pressure is lowered cc3 05/31 00:30 Drug: cloNIDine 0.3 mg Route: PO; cc3 01:00 Follow up: Response: No adverse reaction; Blood pressure is lowered cc3 00:35 Drug: hydrALAZINE 15 mg Route: IV; Rate: bolus; Site: left antecubital; cc3 01:00 Follow up: Response: No adverse reaction; Blood pressure is lowered; IV Status: cc3 Completed infusion Point of Care Testing: Blood Glucose: 05/30 19:16 Blood Glucose: 231 mg/dL; mh5 Ranges: Outcome: 05/31 01:06 Discharge ordered by . tw4 01:15 Discharged to home ambulatory. cc3 01:15 Condition: stable 01:15 Discharge instructions given to patient, Instructed on discharge instructions, follow up and referral plans. medication usage, Demonstrated understanding of instructions, follow-up care, medications, Prescriptions given X 1. 01:20 Patient left the ED. cc3 Signatures: Dispatcher [employer] [facility] Liz Pearson Audri, RN RN aa5 Dionne Cotto, [facility]5 Jerry Goodson MD MD tw4 Diane Jacobs cc3 Corrections: (The following items were deleted from the chart) 05/30 18:54 18:52 Acuity: CHRISTY 3 aa5 aa5
--- NOTE | 2018-05-31 01:07 | EDPHYS ---
Physician Documentation [facility] Name: Monroe Boss Age: 52 yrs Sex: Female : 1965 Arrival Date: 05/30/2018 Time: 18:47 Bed 15 Private MD: ED Physician Jerry Goodson HPI: 05/30 20:56 This 52 yrs old Female presents to ER via Ambulatory with complaints of tw4 Breathing Difficulty. 20:56 The patient has shortness of breath with light activity. tw4 20:56 Onset: The symptoms/episode began/occurred last week. Duration: The symptoms are tw4 continuous, and are steadily getting worse. The patient's shortness of breath is aggravated by exertion, is alleviated by nothing. Associated signs and symptoms: Pertinent positives: This patient does not have any pertinent positive signs or symptoms associated with shortness of breath. Pertinent negatives:. Severity of symptoms: At their worst the symptoms were moderate in the emergency department the symptoms are unchanged. The patient has not experienced similar symptoms in the past. The patient has not recently seen a physician. 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 - Social history:: Smoking status: Patient/guardian denies using tobacco. - Ebola Screening: : No symptoms or risks identified at this time. ROS: 20:56 Constitutional: Negative for fever, chills, and weight loss, Cardiovascular: Negative tw4 for chest pain, palpitations, and edema, Abdomen/GI: Negative for abdominal pain, nausea, vomiting, diarrhea, and constipation, Back: Negative for injury and pain. 20:56 Respiratory: Positive for dyspnea on exertion, shortness of breath, Negative for cough, orthopnea, pleurisy, sputum production, wheezing. Exam: 20:56 Constitutional: This is a well developed, well nourished patient who is awake, alert, tw4 and in no acute distress. Head/Face: Normocephalic, atraumatic. Cardiovascular: Regular rate and rhythm with a normal S1 and S2. No gallops, murmurs, or rubs. Normal PMI, no JVD. No pulse deficits. Respiratory: Lungs have equal breath sounds bilaterally, clear to auscultation and percussion. No rales, rhonchi or wheezes noted. No increased work of breathing, no retractions or nasal flaring. Abdomen/GI: Soft, non-tender, with normal bowel sounds. No distension or tympany. No guarding or rebound. No evidence of tenderness throughout. Back: No spinal tenderness. No costovertebral tenderness. Full range of motion. MS/ Extremity: Pulses equal, no cyanosis. Neurovascular intact. Full, normal range of motion. Neuro: Awake and alert, GCS 15, oriented to person, place, time, and situation. Cranial nerves II-XII grossly intact. Motor strength 5/5 in all extremities. Sensory grossly intact. Cerebellar exam normal. Normal gait. 22:41 ECG was reviewed by the Attending Physician. tw4 Vital Signs: 18:54 BP 204 / 106; Pulse 78; Resp 18 S; Temp 98.5(TE); Pulse Ox 95% on R/A; Weight 97.52 kg aa5 (R); Height 4 ft. 11 in. (149.86 cm) (R); Pain 0/10; 19:45 BP 180 / 102; Pulse 78; Resp 21 S; Pulse Ox 95% on R/A; cc3 21:05 BP 175 / 97; Pulse 83; Resp 20 S; Pulse Ox 96% on R/A; cc3 22:00 BP 199 / 100 RA Sitting (man/reg); Pulse 83; Resp 20; Pulse Ox 93% ; cc 23:00 BP 176 / 89; Pulse 95; Resp 20; Pulse Ox 96% on R/A; cc3 05/31 00:13 BP 189 / 105 RA; Pulse 102; Resp 20 S; Pulse Ox 100% on R/A; cc3 00:21 BP 200 / 120 RA (man/); Pulse 96; Resp 20 S; Pulse Ox 97% on R/A; cc3 01:00 BP 163 / 87; Pulse 107; Resp 19 S; Pulse Ox 96% on R/A; cc3 05/30 18:54 Body Mass Index 43.42 (97.52 kg, 149.86 cm) aa5 MDM: 05/30 19:16 Patient medically screened. [facility] 10/23 01:10 Differential diagnosis: Anemia Anxiety Reaction CHF exacerbation, Myocardial Infarction tw4 pneumonia, Pneumothorax pulmonary edema, reactive airway disease. Data reviewed: vital signs, nurses notes. Data interpreted: monitoring engineer: rhythm is normal sinus rhythm, Pulse oximetry: Interpretation: normal. Test interpretation: by ED physician or midlevel provider: ECG, plain radiologic studies. Counseling: I had a detailed discussion with the patient and/or guardian regarding: the historical points, exam findings, and any diagnostic results supporting the discharge/admit diagnosis, the presence of at least one elevated blood pressure reading (>120/80) during this emergency department visit, lab results, radiology results. Medication response: clonidine partially reduced the patient's blood pressure, labetalol partially reduced the patient's blood pressure. Response to treatment: the patient's symptoms have markedly improved after treatment, and as a result, I will discharge patient, give anti-hypertensive medication. Special discussion: I discussed with the patient/guardian in detail that at this point there is no indication for admission to the hospital. It is understood, however, that if the symptoms persist or worsen the patient needs to return immediately for re-evaluation. 05/30 19:39 Order name: Blood Culture Adult (2) tw4 05/30 19:39 Order name: BMP; Complete Time: 20:43 4 05/30 20:47 Interpretation: Normal except: K 3.0; GLUC 195. 05/30 19:39 Order name: CBC with Diff; Complete Time: 20:43 4 05/30 19:39 Order name: Ckmb; Complete Time: 20:43 4 05/30 19:39 Order name: CPK; Complete Time: 20:43 4 05/30 19:39 Order name: D-Dimer tw4 05/30 19:39 Order name: XRAY CXR (1 view); Complete Time: 20:43 4 05/30 19:39 Order name: Hepatic Function; Complete Time: 20:43 4 05/30 20:47 Interpretation: Normal except: AST 46; ALK 160; ALB 3.3; GLOB 4.2; A/G 0.8. tw4 05/30 19:39 Order name: Lipase; Complete Time: 20:43 4 05/30 19:39 Order name: Magnesium; Complete Time: 20:43 05/30 20:47 Interpretation: Normal except: MG 1.7. tw4 05/30 19:39 Order name: NT PRO-BNP; Complete Time: 20:43 tw4 05/30 20:49 Interpretation: Normal except: NT PRO-BNP 347. tw4 05/30 19:39 Order name: PT-INR tw4 05/30 19:39 Order name: Ptt, Activated tw4 05/30 19:39 Order name: Troponin (emerg Dept Use Only); Complete Time: 20:43 tw4 05/30 19:39 Order name: EKG; Complete Time: 19:40 tw4 05/30 19:39 Order name: Cardiac monitoring; Complete Time: 19:45 tw4 05/30 19:39 Order name: EKG - Nurse/Tech; Complete Time: 19:40 tw4 05/30 19:39 Order name: IV Saline Lock; Complete Time: 19:45 tw4 05/30 19:39 Order name: Labs collected and sent; Complete Time: 19:45 tw4 05/30 19:39 Order name: O2 Per Protocol; Complete Time: 19:45 tw4 05/30 19:39 Order name: O2 Sat Monitoring; Complete Time: 19:45 tw4 05/30 20:52 Order name: CT Chest For PE Angio; Complete Time: 21:42 tw4 EC/22 22:41 Rate is 87 beats/min. Rhythm is regular. QRS [place] is Normal. [place] interval is normal. QRS tw4 interval is normal. QT interval is normal. No Q waves. T waves are Normal. No ST changes noted. Clinical impression: Normal ECG. Interpreted by me. Reviewed by me. Administered Medications: 19:45 Drug: Aspirin 325 mg Route: PO; cc3 20:30 Follow up: Response: No adverse reaction cc3 19:46 Drug: hydrALAZINE 10 mg Route: IV; Rate: bolus; Site: left antecubital; cc3 21:00 Follow up: Response: No adverse reaction; Blood pressure is lowered; IV Status: cc3 Completed infusion 22:25 Drug: Albuterol 1.25 mg Route: Inhalation; cc3 23:00 Follow up: Response: No adverse reaction cc3 22:26 Drug: Labetalol 20 mg Route: IVP; Infused Over: 2 mins; Site: left antecubital; cc3 23:00 Follow up: Response: No adverse reaction; Blood pressure is lowered cc3 05/31 00:30 Drug: cloNIDine 0.3 mg Route: PO; cc3 01:00 Follow up: Response: No adverse reaction; Blood pressure is lowered 3 00:35 Drug: hydrALAZINE 15 mg Route: IV; Rate: bolus; Site: left antecubital; cc3 01:00 Follow up: Response: No adverse reaction; Blood pressure is lowered; IV Status: cc3 Completed infusion Point of Care Testing: Blood Glucose: 05/30 19:16 Blood Glucose: 231 mg/dL; [facility] Ranges: Critical Glucose Levels:Adult <50 mg/dl or >400 mg/dl <40 mg/dl or >180 mg/dl Disposition: 05/31/18 01:06 Discharged to Home. Impression: Hypertensive urgency, Dyspnea, unspecified. - Condition is Stable. - Discharge Instructions: Hypertension, Shortness of Breath, Shortness of Breath, [id number]. - Prescriptions for Clonidine 0.1 mg Oral Tablet - take 1 tablet by ORAL route every 12 hours; 60 tablet. - Medication Reconciliation Form, Thank You Letter, Antibiotic Education, Prescription Opioid Use form. - Follow up: Private Physician; When: Upon discharge from the Emergency Department; Reason: Further diagnostic work-up, Recheck today's complaints, Continuance of care. - Problem is an ongoing problem. - Symptoms have improved. Signatures: Dispatcher [employer] EDEdouard Vergara MD MD cha Calderon, Audri, RN RN aa5 Jerry Goodson MD MD tw4 Diane Jacobs cc3 Corrections: (The following items were deleted from the chart) 05/31 01:20 01:06 05/31/2018 01:06 Discharged to Home. Impression: Hypertensive urgency; Dyspnea, cc3 unspecified. Condition is Stable. Forms are Medication Reconciliation Form, Thank You Letter, Antibiotic Education, Prescription Opioid Use. Follow up: Private Physician; When: Upon discharge from the Emergency Department; Reason: Further diagnostic work-up, Recheck today's complaints, Continuance of care. Problem is an ongoing problem. Symptoms have improved. tw4
[2018-05-31 01:36] VITALS: TEMP 98.5
[2018-05-31 01:45] VITALS: BP 163/87; O2SAT 96
--- NOTE | 2018-05-31 12:13 | EKG ---
Test Date: 2018-05-30 Test Time: 19:00:27 Procedure Analyst: SIS MEASUREMENT RESULTS: Intervals: Rate: 87 ND: 130 QRSD: 74 QT: 380 QTc: 457 [place]: P: 60 ND: 130 QRS: 75 T: 27 INTERPRETIVE STATEMENTS: Normal sinus rhythm Normal ECG Compared to ECG 01/13/2017 17:27:29 No significant changes Electronically Signed On 05-31-18 12:10:27 CDT by Toy Haq
== END 2018-05-31 01:20 | disposition home or self-care (01) ==
LOC: ER 18:42
DX: I16.0 Hypertensive urgency (principal); I10 Essential (primary) hypertension
CPT/HCPCS: 36415; 71045; 71275; 80048; 80076; 82550; 82553; 82962; 83690; 83735; 83880; 84484; 85025; 85379; 85610; 85730; 87040; 93005; 96365; 96366; 96375; 99285; J0360; Q9967